=== PATIENT | male | born 1970 | race African-American/Black ===

== ENCOUNTER 2016-11-28 18:18 | Emergency (ER) | payer OTHER ==
[~2016-11-28] VITALS: Ht 200.7 cm; Wt 158.8 kg
[~2016-11-28 18:18] MED LIST: ACTOS 30 MG TAB30 M2 PO; AMARYL4 MG PO; AMLODIPINE; AMOXICILLIN 50500 MG PO; ANDROGEL75 GM TD; ANTIVERT25 MG PO; AUGMENTIN 875-1 EACH PO; AVANDIA8 MG PO; BENZONATATE200 MG PO; BYSTOLIC 5 MG5 M1 PO; BYSTOLIC10 MG PO; CATAPRES0.1 MG PO; DARVOCET-N 1001 EACH PO; DIOVAN PO; ESCITALOPRAM OX10 MG PO; FISH OIL 1,0001 EAC5; HYDROXYCHLOROQ200 M1 PO; IBUPROFEN 800800 MG PO; INVOKANA300 MG PO; JANUVIA100 MG PO; K-DUR10 MEQ; LORTAB 5 MG/5001 TA1 PO; METFORMIN; METFORMIN PO; NEXIUM; NEXIUM40 MG PO; NORCO 5-325 TA1 EACH PO; NORCO 7.5-3251 EACH PO; NORFLEX100 MG PO; NORVASC10 MG PO; PERCOCET 5-3251 EACH PO; PERCOCET PO; PREDNISONE 20 M20 MG PO; PROAIR HFA8.5 GM IH; TESSALON200 MG PO; TRAMADOL 50 MG50 MG PO; VALIUM5 MG PO; VALSARTAN-HCTZ1 EAC3 PO; VITAMIN D1000 UNI1
[2016-11-28] MEDS ORDERED: FLEXERIL PO (20:06)
[2016-11-28] MEDS ORDERED: NORCO 10-325 T1 EAC1 PO (20:06)
[2016-11-28] MEDS ORDERED: SENOKOT-S1 TA1 PO (20:09)
[2016-11-28] MEDS ORDERED: NAPROSYN500 MG PO (20:09)
[2016-11-28 20:19] VITALS: BP 173/100
== END 2016-11-28 20:20 | disposition home or self-care (01) ==
LOC: ER 18:18
DX: S16.1XXA Strain of muscle, fascia and tendon at neck level, initial encounter (principal); I10 Essential (primary) hypertension; E11.9 Type 2 diabetes mellitus without complications; Z91.041 Radiographic dye allergy status; V49.9XXA Car occupant (driver) (passenger) injured in unspecified traffic accident, initial encounter; Y93.89 Activity, other specified; Y92.89 Other specified places as the place of occurrence of the external cause; Y99.8 Other external cause status

== ENCOUNTER 2017-07-03 11:42 | Emergency (ER) | payer OTHER ==
[~2017-07-03] VITALS: Ht 200.7 cm; Wt 154.2 kg
--- NOTE | ~2017-07-03 | EKG ---
[facility] [place] [address] ELECTROCARDIOGRAM REPORT Name: HAM JONES [facility] [id number] Admission: 07/03/17 Attend Phys: Discharge: 07/03/17 Date of : 68 Report #: [id number] THIS REPORT FOR: //name// [facility] ED Test Date: 2017-07-03 Test Time: 12:18:23 Pat Name: HAM JONES Department: Room: Gender: M Family Centered Specialist: GUILHERME : 1970 Requested By: Tram Mart Order Number: [id number] MD: Reji Yang Measurements Intervals [place] Rate: 103 P: 49 GA: 166 QRS: -23 QRSD: 94 T: 24 QT: 334 QTc: 437 Interpretive Statements Sinus tachycardia Probable left atrial enlargement Abnormal R-wave progression, late transition Probable left ventricular hypertrophy Compared to ECG 09/13/2016 10:36:20 Heart rate has increased Electronically Signed On 07-03-2017 16:06:11 HEALTH TECH by Reji Yang [email or web address] <ELECTRONICALLY SIGNED> By: Reji Yang MD, [facility] 07/03/17 1606 17 Reji Yang MD, [facility] /EPI
[~2017-07-03 11:42] MED LIST changes: +FLEXERIL PO; +NAPROSYN500 MG PO; +NORCO 10-325 T1 EAC1 PO; +SENOKOT-S1 TA1 PO
[2017-07-03] MEDS ORDERED: FORTAMET1000 MG PO (11:51)
[2017-07-03 12:36] LABS: HEMATOCRIT 42.2 % (42.0-52.0); HEMOGLOBIN 14.2 gm/dL (14.0-18.0); MCHC 33.7 g/dL (28.0-37.0); MCV 83.2 fL (80.0-100.0); PLATELET COUNT 248 thou/uL (150-400); RBC 5.07 mil/uL (4.50-6.00); RDW 14.6 % (10.5-14.5); URINE BILIRUBIN NEGATIVE (Negative); URINE BLOOD 1+ (Negative); URINE CLARITY CLEAR; URINE COLOR YELLOW; URINE GLUCOSE-RANDOM* 3+ (Negative); URINE KETONES 1+ (Negative); URINE LEUKOCYTES NEGATIVE (Negative); URINE NITRITE NEGATIVE (Negative); URINE PROTEIN (DIPSTICK) 3+ (Negative); URINE UROBILINOGEN 0.2 E.U./dl (0.2-1.0); WBC 7.9 thou/uL (4.0-11.0)
[2017-07-03 12:46] LABS: ANION GAP 8 mmol/L (7-16); BUN 21 mg/dL (7-18); CALCIUM 9.7 mg/dL (8.5-10.1); CHLORIDE 98 mmol/L (98-107); CO2 26 mmol/L (21-32); CREATININE 2.3 mg/dL (0.7-1.3); GLUCOSE 387 mg/dL (74-106); SODIUM 132 mmol/L (136-145)
[2017-07-03 12:51] LABS: SQUAMOUS 0-3 Few /LPF (0-3)
[2017-07-03 12:52] LABS: BACTERIA None Seen /HPF (None Seen); URINE RBC 0-2 Rare /HPF (0-2); URINE WBC 0-5 Rare /HPF (0-5)
[2017-07-03 12:53] LABS: FINE GRANULAR CASTS 0-3 Few /LPF (None Seen); MUCUS 0-3 Light strn/LPF (None Seen)
[2017-07-03 12:55] LABS: ALBUMIN 2.7 g/dL (3.4-5.0); CRYSTALS None Seen /LPF (None Seen); SGOT 71 U/L (15-37); SGPT 101 U/L (30-65); TOTAL BILIRUBIN 0.6 mg/dL (<0.1-1.0); TOTAL PROTEIN 7.3 g/dL (6.4-8.2); TROPONIN-I < 0.04 ng/mL (<0.06)
[2017-07-03 13:34] LABS: ABSOLUTE NEUTROPHILS 6.2 thou/uL (1.4-8.2); PLATELET ESTIMATE NORMAL
[2017-07-03] MEDS ORDERED: AUGMENTIN 875-1 EACH PO (14:16)
[2017-07-03 15:06] VITALS: BP 157/102
== END 2017-07-03 15:07 | disposition home or self-care (01) ==
LOC: ER 11:42
PROVIDERS: Nurse Practitioner Family
DX: H66.91 Otitis media, unspecified, right ear (principal); N17.9 Acute kidney failure, unspecified; H72.91 Unspecified perforation of tympanic membrane, right ear; B34.9 Viral infection, unspecified; I10 Essential (primary) hypertension; E11.65 Type 2 diabetes mellitus with hyperglycemia; Z91.041 Radiographic dye allergy status; Z87.891 Personal history of nicotine dependence; R94.5 Abnormal results of liver function studies

== ENCOUNTER 2018-03-19 18:55 | Inpatient (IN) | payer OTHER ==
[~2018-03-19] VITALS: Ht 200.7 cm; Wt 150.6 kg
--- NOTE | ~2018-03-19 | EKG ---
[place] [address] [address] [facility] [place] [address] ELECTROCARDIOGRAM REPORT Name: HAM JONES Room #: 422-P ADM IN M.R.#: [id number] Admission: 03/19/18 Attend Phys: Dean Szymanski MD Discharge: Date of : 68 Report #: [id number] THIS REPORT FOR: //name// [facility] ED Test Date: 2018-03-19 Test Time: 19:08:55 Pat Name: HAM JONES Department: Room: [facility] Gender: M Dye Range Tender: KAMARI : 1970 Requested By: Dario Hill Order Number: [id number] MD: Reji Yang Measurements Intervals [place] Rate: 78 P: 35 ME: 178 QRS: -30 QRSD: 96 T: 28 QT: 384 QTc: 438 Interpretive Statements Sinus rhythm Abnormal R-wave progression, late transition Left ventricular hypertrophy ST elev, probable normal early repol pattern Compared to ECG 07/03/2017 12:18:23 Sinus tachycardia no longer present Electronically Signed On 03-20-2018 8:44:35 CDT by Reji Yang [email or web address] <ELECTRONICALLY SIGNED> By: Reji Yang MD, [facility] 03/20/18 0844 190 07 Reji Yang MD, [facility] /EPI
--- NOTE | ~2018-03-19 | PATH ---
[facility] [address] [place] [address] PATHOLOGY RPT PROCEDURE Name: HAM COLUNGA Room #: 422-P [facility] IN M.R.#: [id number] Admission: 03/19/18 Date of : 68 Discharge: 03/22/18 Report #: [id number] Path Case #: [id number] [facility] Accession Number: [id number] . 01 Material submitted: . GALLBLADDER . 01 Clinical history: . Acute cholecystitis and cholelithiasis . 02 Diagnosis: Gallbladder "gallbladder cholecystectomy": - Moderate subacute and chronic cholecystitis with cholelithiasis. (SHA:[facility] 03/24/2018) QTP/03/24/2018 . 02 Electronically signed: . Chandan Lovelace MD, Pathologist NPI- [id number] . 01 Gross description: . The specimen is received in formalin, labeled "Colunga, Ham, gallbladder" and consists of a previously opened pink-colunga and wrinkled gallbladder measuring 10.7 cm in length and 3.9 cm in greatest diameter. The neck aspect is slightly edematous and encased with adipose tissue measuring up to 0.5 cm. Present within the container are multiple black and smooth calculi ranging from 0.2 cm to 1.3 cm (2.0 x 1.3 x 0.3 cm in aggregate). The mucosa is stoll-brown with no gross lesions and an average wall thickness of 0.2 cm. A single lymph node candidate is identified adjacent the neck aspect measuring 0.9 x 0.8 cm. Quantitative Equity Head sections are submitted in A1-A2. (SDY; 03/21/2018) SYU/SYU . 02 Pathologist provided ICD-10: K80.12 . 02 CPT . 612979 Specimen Comment: A courtesy copy of this report has been sent to Specimen Comment: [phone], , . Specimen Comment: Report sent to ,DR MEYERS / DR RAMIREZ Performed at: [address] [facility] [address] [id number] MD Kavon Ward MD Phone: [phone] Performed at: [address] [address] PATHOLOGY RPT PROCEDURE Name: HAM COLUNGA Room #: 422-P DIS IN M.R.#: [id number] Admission: 03/19/18 Date of : 68 Discharge: 03/22/18 Report #: [id number] Path Case #: [id number] [place] [address], [place], [place] [id number] MD Zari Briggs MD Phone: [phone]
[~2018-03-19 18:55] MED LIST changes: +FORTAMET1000 MG PO
[2018-03-19 19:06] VITALS: BP 193/126
[2018-03-19] MEDS ORDERED: AMLODIPINE BESY10 MG PO (19:15)
[2018-03-19] MEDS ORDERED: IRBESARTAN300 MG PO (19:15)
[2018-03-19 19:31] LABS: HEMATOCRIT 44.5 % (42.0-52.0); MCH 28.1 pg (26.0-34.0); MCHC 33.6 g/dL (28.0-37.0); MCV 83.5 fL (80.0-100.0); PLATELET COUNT 287 thou/uL (150-400); RBC 5.33 mil/uL (4.50-6.00); RDW 14.3 % (10.5-14.5)
[2018-03-19 19:38] LABS: ANION GAP 5 mmol/L (7-16); BUN 21 mg/dL (7-18); CALCIUM 9.7 mg/dL (8.5-10.1); CHLORIDE 104 mmol/L (98-107); CO2 28 mmol/L (21-32); CREATININE 2.2 mg/dL (0.7-1.3); GLUCOSE 178 mg/dL (74-106); POTASSIUM 3.6 mmol/L (3.5-5.1); SODIUM 137 mmol/L (136-145)
[2018-03-19 19:47] LABS: TROPONIN-I <0.06 ng/mL (<0.06)
[2018-03-19 20:35] LABS: DIRECT BILIRUBIN < 0.1 mg/dL (<0.1-0.3); LIPASE 614 U/L (73-393); SGOT 19 U/L (15-37); SGPT 29 U/L (30-65); TOTAL BILIRUBIN 0.3 mg/dL (<0.1-1.0)
[2018-03-20] VITALS (7 sets, daily range): BP systolic 165–191; BP diastolic 99–133
[2018-03-20 06:24] LABS: HEMATOCRIT 40.8 % (42.0-52.0); HEMOGLOBIN 13.7 gm/dL (14.0-18.0); MCH 28.1 pg (26.0-34.0); MCHC 33.6 g/dL (28.0-37.0); MCV 83.5 fL (80.0-100.0); RBC 4.88 mil/uL (4.50-6.00); RDW 14.8 % (10.5-14.5); WBC 5.6 thou/uL (4.0-11.0)
[2018-03-20 06:44] LABS: ANION GAP 10 mmol/L (7-16); BUN 19 mg/dL (7-18); CALCIUM 8.5 mg/dL (8.5-10.1); CHLORIDE 107 mmol/L (98-107); CHOLESTEROL 107 mg/dL (<200); CO2 26 mmol/L (21-32); GLUCOSE 163 mg/dL (74-106); HDL CHOLESTEROL 27 mg/dL (>40); LDL CHOLESTEROL 43 mg/dL (<100); POTASSIUM 3.6 mmol/L (3.5-5.1); SODIUM 143 mmol/L (136-145); TRIGLYCERIDE 188 mg/dL (<150); VLDL 38 mg/dL (<40)
[2018-03-21] VITALS (8 sets, daily range): BP systolic 151–211; BP diastolic 78–138
[2018-03-21 01:07] LABS: GLYCOHEMOGLOBIN (HGB A1C) 10.6 % (4.8-5.6)
[2018-03-21 06:04] LABS: HEMATOCRIT 41.2 % (42.0-52.0); HEMOGLOBIN 13.8 gm/dL (14.0-18.0); MCHC 33.5 g/dL (28.0-37.0); MCV 83.6 fL (80.0-100.0); RBC 4.93 mil/uL (4.50-6.00); RDW 14.7 % (10.5-14.5)
[2018-03-21 06:13] LABS: CALCIUM 8.5 mg/dL (8.5-10.1); CREATININE 1.9 mg/dL (0.7-1.3); POTASSIUM 3.9 mmol/L (3.5-5.1)
[2018-03-22 04:15] VITALS: BP 169/98
[2018-03-22 05:02] LABS: HEMATOCRIT 40.5 % (42.0-52.0); HEMOGLOBIN 13.3 gm/dL (14.0-18.0); MCH 27.5 pg (26.0-34.0); MCHC 32.7 g/dL (28.0-37.0); RBC 4.82 mil/uL (4.50-6.00); RDW 14.9 % (10.5-14.5); WBC 8.8 thou/uL (4.0-11.0)
[2018-03-22 05:16] LABS: ALBUMIN 2.3 g/dL (3.4-5.0); CALCIUM 8.3 mg/dL (8.5-10.1); CREATININE 2.2 mg/dL (0.7-1.3); POTASSIUM 3.8 mmol/L (3.5-5.1); TOTAL BILIRUBIN 0.4 mg/dL (<0.1-1.0); TOTAL PROTEIN 6.5 g/dL (6.4-8.2)
[2018-03-22 07:45] VITALS: BP 168/100
[2018-03-22] MEDS ORDERED: PERCOCET 10-321 EACH PO (14:17)
[2018-03-22 15:29] VITALS: BP 185/91
== END 2018-03-22 16:22 | disposition home or self-care (01) | DRG 417 ==
LOC: ER 18:55 → 4E 23:23 → EROBS 23:23 → 4E 03-20 01:06
PROVIDERS: Emergency Medicine; Hospitalist; Nurse Practitioner Family; Physician Assistant
PROC: BF101ZZ Fluoroscopy of Bile Ducts using Low Osmolar Contrast (ICD-10-PCS; 2018-03-19)
PROC: 5A09357 Assistance with Respiratory Ventilation, Less than 24 Consecutive Hours, Continuous Positive Airway Pressure (ICD-10-PCS; principal; 2018-03-21)
PROC: 0FT44ZZ Resection of Gallbladder, Percutaneous Endoscopic Approach (ICD-10-PCS; principal; 2018-03-21)
DX: K80.20 Calculus of gallbladder without cholecystitis without obstruction (principal); K85.10 Biliary acute pancreatitis without necrosis or infection; I16.0 Hypertensive urgency; N18.3 Chronic kidney disease, stage 3 (moderate); E78.5 Hyperlipidemia, unspecified; K76.0 Fatty (change of) liver, not elsewhere classified; E11.22 Type 2 diabetes mellitus with diabetic chronic kidney disease; I12.9 Hypertensive chronic kidney disease with stage 1 through stage 4 chronic kidney disease, or unspecified chronic kidney disease; N28.89 Other specified disorders of kidney and ureter; E66.9 Obesity, unspecified; Z68.37 Body mass index [BMI] 37.0-37.9, adult; Z87.81 Personal history of (healed) traumatic fracture; Z91.041 Radiographic dye allergy status; Z87.891 Personal history of nicotine dependence; Z91.011 Allergy to milk products
CPT/HCPCS: 10183; 50010; 50101; 50249; 50411; 50555; 50558; 50962; 51489; 51975; 52265; 53307; 53310; 54022; 54118; 55245; 55317; 56462; 56525; 56526; 62110; 62900; 70005

== ENCOUNTER 2018-10-01 09:49 | Inpatient (IN) | payer OTHER ==
[2018-10-01] VITALS (14 sets, daily range): BP systolic 161–216; BP diastolic 87–153
[~2018-10-01] VITALS: Ht 200.7 cm; Wt 148.0 kg
--- NOTE | ~2018-10-01 | HC ---
[facility] [place] [address] CONSULTATION Name: HAM JONES Room #: 355-P [facility] IN ..#: [id number] Admission: 10/01/18 ������������������ Attend Phys: Dean Szymanski MD Discharge: ������������������ Date of : 68 Report #: [id number] THIS REPORT FOR: //name// CC: Maria Eugenia Santiago MD DATE OF SERVICE: 10/01/2018 NEPHROLOGY CONSULTATION REASON FOR CONSULTATION: Elevated creatinine. HISTORY OF PRESENT ILLNESS: This is a 48-year-old male who came in early this morning with increasing dyspnea. This included orthopnea as well as some PND. He did not have chest pain at that time. He was not profoundly hypoxemic on admission to the Emergency Room. He was given 20 mg IV dose of furosemide and had minimal urine output and no improvement after that. He has had very high blood pressures throughout the day since he hit the Emergency Room. They started at 200/146. He has been in the 190/140 range continuously since that time. He knows he has had hypertension dating back about 14-15 years. He also has type 2 diabetes dating back that long. He is normally on irbesartan 300 mg daily as well as amlodipine 10 mg daily. Those are his only 2 antihypertensive medications. He is unaware of what his blood pressure had been running recently. He denies any history of edema. He states he has been told of some proteinuria, but it has never been quantified that he knows of. He is unaware of an elevated creatinine level or any chronic kidney disease. In looking back through his records, he has creatinine levels on the hospital records dating back to 2008 and they have all been elevated. In 2008, it was 1.6. Over the past 2-1/2 years, he has generally run in the 2-2.3 range. He was in the hospital here in 03/2018 for cholecystectomy. His creatinine level was 2.2 at that time. He comes in at 2.6 today. Of additional note, he had 3+ proteinuria on urinalysis and he has had that in the past also. His serum albumin is only 2.4 with a total protein of 7.0. Additional renal-related history is that he has been previously found to have an abnormal appearance to the right kidney. I have reviewed a prior CT scan here. In addition, he had a workup by Dr. Santiago of Urology that included a CT scan as well as an MRI and an ultrasound. The final diagnosis by Dr. Santiago was a complex cyst in the lower pole of the right kidney with a plan for repeat MRI in 6 months for followup of this complex cyst. PAST MEDICAL HISTORY: Hypertension and diabetes, both diagnosed about the same time, which would have been about age 34. He has been on antihypertensives. He was recently started on both Trulicity and some long-acting insulin by an [facility] [address] [place] [address] CONSULTATION Name: HAM JONES Room #: 355-P [facility] IN ..#: [id number] Admission: 10/01/18 ������������������ Attend Phys: Dean Szymanski MD Discharge: ������������������ Date of : 68 Report #: [id number] foam rubber molder he recently saw, although he does not recall the name of that person. He had a laparoscopic cholecystectomy at this hospital in 03/2018. He has obstructive sleep apnea. Years ago, he had uvulopalatoplasty done. He still wears CPAP some of the time, but he is not wearing it all of the time. Only other surgery was a repair of a left ankle fracture. He has hyperlipidemia and has been on treatment for that. MEDICATIONS ON ADMISSION: Include amlodipine 10 mg daily, irbesartan 300 mg daily, Trulicity, long-acting insulin, Crestor 10 mg daily. ALLERGIES: INCLUDE IODINATED CONTRAST. FAMILY HISTORY: No history of renal disease in the family. There has been some hypertension in the family. SOCIAL HISTORY: The patient is and lives in [place], [place]. He has 3 adolescent children in the room with him now. 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 REVIEW OF SYSTEMS: He has had the orthopnea and PND over the past 3 nights. He denies dyspnea on exertion, mainly at work where he says he does quite a bit of walking. He says he never has to climb any stairs, so he does not know if he has dyspnea with that. Denies chest pain or palpitations. He has had some mild nonproductive cough. No fevers, chills or sweats. Denies nausea or vomiting. He still has some residual right upper quadrant pain that he relates to being present since his cholecystectomy in March. No diarrhea. No change in bowel habits. No difficulty voiding urine. No dysuria. He has nocturia 3 times nightly, which is not a change, no hematuria. He denies peripheral edema in the hands, feet, or face. No fevers, chills or sweats. No open skin lesions. Denies peripheral neuropathy related to his diabetes and also denies retinopathy. PHYSICAL EXAMINATION: GENERAL: Very pleasant, very large man. VITAL SIGNS: Blood pressure on last check 197/142, heart rate is 90, respiratory rate 18, oxygen saturation 97% on room air, temperature 36.9 degrees Centigrade. He is 6 feet 7-3/4 inches tall, he weighs 151 kilograms with a BMI of 37.6. HEENT: Shows pupils are equal and reactive. He has several skin lesions in the periorbital area, across his forehead, and some on his nose that he says they were biopsied and told it was sarcoidosis, though they looked more like they might be____. Oral mucosa is negative. Uvuloplasty has been noted. NECK: Shows no adenopathy, thyromegaly, JVD or bruit. CHEST: Fairly clear at this time. There might be a few basilar rales, although they are not prominent. No egophony. HEART: Regular rate and rhythm, no gallop. [facility] [address] [place] [address] CONSULTATION Name: HAM JONES Room #: 355- ADM IN M.R.#: [id number] Admission: 10/01/18 ������������������ Attend Phys: Dean Szymanski MD Discharge: ������������������ Date of : 68 Report #: [id number] BACK: Shows no CVA or paraspinous tenderness. ABDOMEN: Active bowel sounds. It is soft and nontender. I cannot palpate organomegaly or masses. EXTREMITIES: Showed 2+ peripheral pulses. He has no peripheral edema. LABORATORY DATA: Sodium 140, potassium 4.2, chloride 106, bicarbonate 22, BUN 24, creatinine 2.6, glucose 186, calcium 9.0, total protein 7.0, albumin 2.4, AST 22, ALT 25, total bilirubin 0.3. Hemoglobin 14.2, hematocrit 42.8, white count 5.7, platelets 244,000. Urinalysis, specific gravity of 1.020, pH 6.0, 3+ protein, 1+ blood, 0-5 white cells, 0-2 red cells. ASSESSMENT: 1. Chronically elevated creatinine consistent with chronic kidney disease stage 3. It might be borderline stage 4, but he is a very large man, so I think his actual GFR is probably better than the estimated GFR. He has longstanding diabetes and hypertension. He has significant proteinuria. From what I can tell, this has never been quantified. We need to quantify that. It could well be nephrotic range with his low serum albumin. For completeness, we will check a kappa lambda light chain to make sure it did not have paraprotein also. At this point, he needs much better blood pressure control. 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 We will get him back on his angiotensin receptor yu. He will continue his amlodipine. He will need some additional diuresis. 2. Hypertension, out of control as noted above. Again, he had not had his meds today. We will get them as well as some IV Lasix. Going forward, we will need to incrementally increase his regimen and intensify his antihypertensive medications over time bringing his blood pressure down to normal. Hopefully, this will also get his proteinuria under control. 3. Longstanding diabetes mellitus, on the regimen as noted above, now seeing a certified pharmacy technician. 4. Complex cyst, lower pole right kidney with previous workup. Please see my note above concerning that with a plan followup of that in a number of months with another MRI by Dr. Santiago. 4. Obstructive sleep apnea. He would be better served by being back on chronic CPAP rather than just intermittent CPAP. PLAN: 1. We will resume his amlodipine and his ARB tonight. We will have give him losartan because that is what we have available here. 2. I will give him a dose of IV Lasix 80 mg as with that creatinine level 20 mg is a suboptimal dose. 3. Quantify proteinuria. 4. Check kappa lambda light chain ratio. 5. We do not need further renal imaging at this time as that has all been fully done. [address] [place] [address] CONSULTATION Name: HAM JONES Room #: 355-P ADM IN M.R.#: [id number] Admission: 10/01/18 ������������������ Attend Phys: Dean Szymanski MD Discharge: ������������������ Date of : 68 Report #: [id number] 6. Low sodium diet. 7. Repeat labs in the morning. 8. Continue to titrate meds to get blood pressure controlled, although we will not be able to get it down to where we want in the very near future. It will take some time because of the massive elevation to get it where it needs to be. Most of that will need to be done as an outpatient. 9. Further renal education. 10. Will follow along both here in the hospital as well as on an outpatient basis to make sure this starts getting under better control. ��������������������������������������������� ���������������������������������������� By: ��������������������������������������������� 1814 1256 Stalin Davalos MD /nt
[~2018-10-01 09:49] MED LIST changes: +AMLODIPINE BESY10 MG PO; +IRBESARTAN300 MG PO; +PERCOCET 10-321 EACH PO
[2018-10-01 10:24] LABS: HEMATOCRIT 42.8 % (42.0-52.0); HEMOGLOBIN 14.2 gm/dL (14.0-18.0); MCH 27.8 pg (26.0-34.0); MCHC 33.1 g/dL (28.0-37.0); MCV 84.2 fL (80.0-100.0); PLATELET COUNT 244 thou/uL (150-400); RBC 5.08 mil/uL (4.50-6.00); RDW 14.7 % (10.5-14.5); WBC 5.7 thou/uL (4.0-11.0)
[2018-10-01 10:31] LABS: CREATININE 2.6 mg/dL (0.7-1.3); POTASSIUM 4.2 mmol/L (3.5-5.1)
[2018-10-01 10:41] LABS: ALBUMIN 2.4 g/dL (3.4-5.0); TOTAL BILIRUBIN 0.3 mg/dL (<0.1-1.0); TROPONIN-I 0.06 ng/mL (<0.06)
[2018-10-01 11:44] LABS: ABSOLUTE NEUTROPHILS 3.5 thou/uL (1.4-8.2); PLATELET ESTIMATE NORMAL
[2018-10-01 11:48] LABS: URINE BILIRUBIN NEGATIVE (Negative); URINE BLOOD 1+ (Negative); URINE CLARITY CLEAR; URINE COLOR YELLOW; URINE GLUCOSE-RANDOM* 1+ (Negative); URINE KETONES NEGATIVE (Negative); URINE LEUKOCYTES NEGATIVE (Negative); URINE NITRITE NEGATIVE (Negative); URINE PROTEIN (DIPSTICK) 3+ (Negative); URINE UROBILINOGEN 0.2 E.U./dl (0.2-1.0)
[2018-10-01 12:02] LABS: CASTS None Seen /LPF (None Seen); MUCUS 0-3 Light strn/LPF (None Seen); SQUAMOUS 0-3 Few /LPF (0-3)
[2018-10-01 12:03] LABS: BACTERIA None Seen /HPF (None Seen); CRYSTALS None Seen /LPF (None Seen); URINE RBC 0-2 Rare /HPF (0-2); URINE WBC 0-5 Rare /HPF (0-5)
[2018-10-01] MEDS ORDERED: TRESIBA FL200 UNIT/1 SUBQ (13:27)
[2018-10-01] MEDS ORDERED: TRULICITY1.5 MG/0.5 SUBQ (13:30)
[2018-10-01] MEDS ORDERED: CRESTOR10 MG PO (13:31)
[2018-10-01] MEDS ORDERED: UNICOMPLEX M TA1 TA1 PO (13:32)
[2018-10-01] MEDS ORDERED: KLOR-CON 1010 MEQ PO (13:35)
[2018-10-01] MEDS ORDERED: VITAMIN D1000 UNI1 PO (13:36)
[2018-10-01] MEDS ORDERED: VITAMINC500 PO (13:36)
--- NOTE | 2018-10-01 18:42 | NUR ---
Assumed care of pt at approximately 1500. Pt came from ED. Reports increasing SOB over last 3 days. Pt reports having CHF, HTN, and DM. At arrival on floor pt had BP of 197/142. Pt complained of a PERKINS rating it a 20/10. Was given IV HTN medication at that time. Reassessment at approximately 1820 showed a BP of 196/137. Dr. Elizabeth ordered one time doses of Losartan, Norvasc, and Lasix, which were given at approximately 1830, in addition to Tylenol. Patient denies current SOB but has compained of upper abdominal pain. (Further notes in admission assessment.) Patient remains NSR. Patient has not yet made progress toward his POC/DC goals. Will continue to monitor and assess.
[2018-10-01 20:19] LABS: URINE CREATININE-RANDOM* <13 mg/dL; URINE PROTEIN-RANDOM* 103.9 mg/dL (<11.9)
[2018-10-02] VITALS (29 sets, daily range): BP systolic 114–170; BP diastolic 71–122
[2018-10-02 05:02] LABS: HEMATOCRIT 41.7 % (42.0-52.0); HEMOGLOBIN 13.6 gm/dL (14.0-18.0); MCH 27.5 pg (26.0-34.0); MCHC 32.7 g/dL (28.0-37.0); MCV 84.2 fL (80.0-100.0); RBC 4.95 mil/uL (4.50-6.00); RDW 14.8 % (10.5-14.5); WBC 6.4 thou/uL (4.0-11.0)
--- NOTE | 2018-10-02 05:09 | NUR ---
PT RESTING IN BED. APPEARS TO BE SLEEPING. PT SR ON MONITOR. REMAINS ON RA. PT BP NOW MANAGED WITH CARDENE GTT AND PT TOLERATING WILL BETTER BPs. PT HEADACHE IMPROVED WELL. PT AM LABS TO BE REVIEWED.
[2018-10-02 05:16] LABS: ALBUMIN 2.3 g/dL (3.4-5.0); CALCIUM 9.1 mg/dL (8.5-10.1); PHOSPHORUS 4.7 mg/dL (2.5-4.9); POTASSIUM 3.7 mmol/L (3.5-5.1)
--- NOTE | 2018-10-02 09:38 | EKG ---
[place] [address] [facility] [place] [address] ELECTROCARDIOGRAM REPORT Name: HAM JONES Room #: 355-P ADM IN M.R.#: [id number] ������������������ Admission: 10/01/18 ������������������ Attend Phys: Dean Szymanski MD Discharge: ������������������ Date of : 68 Report #: [id number] ����������������������������������������������������������������� [id number] THIS REPORT FOR: //name// [facility] ED Test Date: 2018-10-01 Test Time: 10:07:30 Pat Name: HAM JONES Department: Room: [facility] Gender: M Housing Liaison: : 1970 Requested By: Edmund Griffin Order Number: [id number] MD: Reji Yang Measurements Intervals [place] Rate: 91 P: 54 AR: 179 QRS: -29 QRSD: 92 T: 116 QT: 383 QTc: 472 Interpretive Statements Sinus rhythm Abnormal T, consider ischemia, lateral leads Compared to ECG 03/19/2018 19:08:55 T-wave abnormality now present Electronically Signed On 10-02-2018 9:38:12 CDT by Reji Yang [email or web address] ��������������������������������������������� <ELECTRONICALLY SIGNED> ���������������������������������������� By: Reji Yang MD, [facility] ��������������������������������������������� 10/02/18 0938 1007 1007 Reji Yang MD, FAC /EPI
--- NOTE | 2018-10-02 10:14 | 2DMMODE ---
[facility] [address] [place] [address] 2 D/M-MODE ECHOCARDIOGRAM Name: HAM JONES Room #: 355-P [facility] IN [facility]#: [id number] ������������� Admission: 10/01/18 ������������� Attend Phys: Dean Szymanski MD Discharge: ��� ������������� ��� Date of : 68 Date of Service: 10/02/18 1014 �� Report #: [id number] �������� ��������������������������������������������[id number] THIS REPORT FOR: //name// APPROVED REPORT Study performed: 10/02/2018 09:11:24 EXAM: Comprehensive 2D, Doppler, and color-flow Echocardiogram Patient Location: Echo lab Room #: [facility] Status: routine BSA: 2.84 HR: 92 bpm BP: 155/110 mmHg Rhythm: Regular, PVCs Other Information Study Quality: Good Indications Congestive Heart Failure Dyspnea Hx: DM, HTN, sarcoidosis 2D Dimensions RVDd: 29.30 mm IVSd: 13.00 (7-11mm) LVOT Diam: 24.05 (18-24mm) LVDd: 57.36 mm PWd: 14.00 (7-11mm) LVDs: 44.43 (25-40mm) Aortic Root: 36.09 mm Volumes Left Atrial Volume (Systole) Single Plane 4CH: 62.06 mL Single Plane 2CH: 60.95 mL LA ESV Index: 23.00 mL/m2 Aortic Valve AoV Peak Gage.: 1.23 m/s AO Peak Gr.: 6.07 mmHg LVOT Max P.72 mmHg LVOT Max V: 0.82 m/s SHEILA Vmax: 3.04 cm2 Pulmonary Valve PV Peak Gage.: 0.88 m/s PV Peak Gr.: 3.09 mmHg [facility] [address] [place] [address] 2 D/M-MODE ECHOCARDIOGRAM Name: HAM JONES [facility] [id number] ������������� Admission: 10/01/18 ������������� Attend Phys: Dean Szymanski MD Discharge: ��� ������������� ��� Date of : 68 Date of Service: 10/02/18 1014 �� Report #: [id number] �������� ��������������������������������������������[id number] Pulmonary Vein P Vein S: 0.48 m/s P Vein A: 0.27 m/s P Vein D: 0.26 m/s P Vein S/D Ratio: 1.85 Tricuspid Valve RAP Estimate: 5.00 mmHg Left Ventricle The left ventricle is normal size. There is global hypokinesis of the left ventricle. Moderate concentric left ventricular hypertrophy. Left ventricular systolic function is mildly decreased. LVEF is 45%. This study is not technically sufficient to allow evaluation of the LV diastolic function. Right Ventricle The right ventricle is normal size. The right ventricular systolic function is normal. Atria The left atrium size is normal. The right atrium size is normal. Aortic Valve The aortic valve is normal in structure. No aortic regurgitation is present. There is no aortic valvular stenosis. Mitral Valve The mitral valve is normal in structure. Mild mitral regurgitation. Tricuspid Valve The tricuspid valve is normal in structure. There is no tricuspid valve regurgitation noted. Unable to assess PA pressure. Pulmonic Valve Pulmonic valve is not well visualized. There is no pulmonic valvular regurgitation. Great Vessels The aortic root is normal in size. IVC is normal in size and collapses >50% with inspiration. Pericardium There is no pericardial effusion. [facility] [address] [place] [address] 2 D/M-MODE ECHOCARDIOGRAM Name: HAM JONES Room #: 355-P [facility] IN .R.#: [id number] ������������� Admission: 10/01/18 ������������� Attend Phys: Dean Szymanski MD Discharge: ��� ������������� ��� Date of : 68 Date of Service: 10/02/18 1014 �� Report #: [id number] �������� ��������������������������������������������[id number] <Conclusion> Left ventricular systolic function is mildly decreased. Moderate concentric left ventricular hypertrophy. LVEF 45%. The aortic valve is normal in structure. No aortic regurgitation or stenosis The mitral valve is normal in structure. Mild mitral regurgitation Pulmonary artery pressure could not be reliably ascertained. There is no pericardial effusion. ��������������������������������������������� <ELECTRONICALLY SIGNED> ���������������������������������������� By: Reji Yang MD, [facility] ��������������������������������������������� 10/02/18 1014 1014 1014 Reji Yagn MD, FACC /INF
--- NOTE | 2018-10-02 18:05 | NUR ---
Assumed care of patient at 0700. BP continued to be high this shift, but improved compared to previous day. Able to control BP with scheduled meds, but remains high this evening. Hydralazine PRN given x1 without change in BP. Dr. Szymanski notified, who states will order further meds. To give onetime dose of Clonidine. Otherwise, VSS. Patient with headache this morning; partially controlled with PRN Tylenol. Improved now. Patient alert and oriented x4. Steady gait, up ad olive in room. Encouraging voiding per urinal to accurately measure output. Good urine output this shift. Attempting to progress towards POC. May DC tomorrow if blood pressure better controlled. Will continue to monitor.
[2018-10-03] VITALS (8 sets, daily range): BP systolic 151–180; BP diastolic 96–130
--- NOTE | 2018-10-03 05:04 | NUR ---
ASSUMED PT CARE AROUND 1900. A&OX4. C/O HEADACHE. NOTIFIED LAUNDRY MANAGER OVERLAY OPERATOR FOR HOSPITALIST. IBUPROFEN GIVEN ORDERED. PT STATED PERKINS IMPROVED WITH MEDICATION. BP ELEVATED. NOTIFIED LAUNDRY MANAGER OVERLAY OPERATOR. BP MEDICATIONS GIVEN ORDERED. BP IS SLOWLY IMPROVING. LAUNDRY MANAGER UPDATED ON BP. PT SLEPT MOST OF THE NIGHT. RESP EVEN AND UNLABORED. UP AD CELIO AROUND THE ROOM WITH STEADY GAIT. PROGRESSING SLOWLY TOWARD POC GOALS. WILL CONTINUE TO MONITOR FURTHER.
[2018-10-03 05:09] LABS: ALBUMIN 2.3 g/dL (3.4-5.0); CREATININE 3.1 mg/dL (0.7-1.3); PHOSPHORUS 4.9 mg/dL (2.5-4.9); POTASSIUM 3.6 mmol/L (3.5-5.1)
--- NOTE | 2018-10-03 06:25 | NUR ---
BP ELEVATED AGAIN THIS AM. NOTIFIED CATTLE SHIPPER SUPERVISOR POWDER AND PRIMER CANNING FOR HOSPITALIST. ORDERS RECEIVED. WILL UPDATE ONCOMING NURSE.
[2018-10-03 15:10] LABS: KAPPA/LAMBDA RATIO 1.59 (0.26-1.65); LAMBDA FREE LIGHT CHAINS 50.8 mg/L (5.7-26.3)
--- NOTE | 2018-10-03 15:12 | NUR ---
assessment: cm REVIEWED CHART AND MET WITH PATIENT AT THE BEDSIDE. PT IS ALERT AND ORIENTED X4. PT WAS ADMITTED WITH CHF/HTN. PT REPORTS HE IS FULLY INDEPENDENT WITH ADLS AND AMBULATION AND REPORTS BEING VERY ACTIVE. PT STATES HE WILL HAVE NO NEEDS FROM CM AT DISCHARGE. PTS BP IS STILL ELEVATED TODAY AND WILL LIKELY BE HERE 1-2 DAYS BUT POSSIBLE DISCHARGE OVER THE WEEKEND. PT STATES HE WILL HAVE NO NEEDS.
--- NOTE | 2018-10-03 17:41 | NUR ---
Assumed care of Pt at 0700. Pt alert and oriented x4 complaining of severe 10/10 headache. hypertensive. meds managed by nephrology - slowly improving. finding little releif with analgesics for headache. up ad olive w/ steady gait. sinus on telemetry. blood sugars well controlled. slow progress toward poc goals.
--- NOTE | 2018-10-04 04:38 | NUR ---
Patient making slow progress towards outcome goals. BP remains elevated, treated with PRN Hydralazine with some relief. Low fall risks. Uses call light appropriately for needs. CPAP while sleeping.
[2018-10-04 04:50] LABS: ALBUMIN 2.3 g/dL (3.4-5.0); CALCIUM 9.1 mg/dL (8.5-10.1); PHOSPHORUS 4.9 mg/dL (2.5-4.9); POTASSIUM 3.7 mmol/L (3.5-5.1)
[2018-10-04 05:10] VITALS: BP 166/111
[2018-10-04 07:44] VITALS: BP 138/93
[2018-10-04 12:35] VITALS: BP 147/93
[2018-10-04 17:18] VITALS: BP 158/99
--- NOTE | 2018-10-04 18:29 | NUR ---
Assumed care of Pt at 0700. Pt AOX4 in no acute distress. reports that pain and nausea is improving w/ current med regimen. up ad olive w/ steady gait. voicing no concerns. anticipating d/c tomorrow if bp continues to improve. pt progressing toward poc goals.
[2018-10-04 20:05] VITALS: BP 146/93
[2018-10-05 03:50] VITALS: BP 142/98
[2018-10-05 04:57] LABS: HEMATOCRIT 41.5 % (42.0-52.0); HEMOGLOBIN 13.7 gm/dL (14.0-18.0); MCH 27.9 pg (26.0-34.0); MCHC 32.9 g/dL (28.0-37.0); MCV 84.7 fL (80.0-100.0); RBC 4.9 mil/uL (4.50-6.00); RDW 14.8 % (10.5-14.5); WBC 4.9 thou/uL (4.0-11.0)
[2018-10-05 05:12] LABS: ALBUMIN 2.4 g/dL (3.4-5.0); CREATININE 3.5 mg/dL (0.7-1.3); PHOSPHORUS 5.8 mg/dL (2.5-4.9); POTASSIUM 4.1 mmol/L (3.5-5.1)
--- NOTE | 2018-10-05 06:32 | NUR ---
PT IS ABLE TO VERBALIZE WHEN HE HAD A HEADACHE AND ASKED FOR PAIN MEDICATION. PT BLOOD SUGAR IN CHECK WITH ALL THE FOOD HE IS CONSUMING FROM OUTSIDE SOURCES. FAMILY WAS IN FOR VISIT. URINE OUTPUT FOR OVERNIGHT WAS GOOD. PT SHOULD POSSIBLY DC TODAY. HOURLY ROUNDING.
[2018-10-05 08:40] VITALS: BP 185/99
[2018-10-05 10:34] VITALS: BP 158/97
[2018-10-05 16:55] VITALS: BP 156/101
[2018-10-05 19:17] VITALS: BP 172/118
[2018-10-05 22:39] VITALS: BP 159/109
[2018-10-06 00:43] VITALS: BP 152/116
--- NOTE | 2018-10-06 02:28 | NUR ---
ASSUMED CARE OF PATIENT AT 1900. BP REMAINS HIGH, PO MEDS GIVEN WELL IV HYDRALAZINE. BP LOWERED SLIGHTLY. PATIENT RESTING IN BED, DENIES PAIN, SOA OR N/V. HOPING TO BE DISCHARGED TODAY. WORKING TOWARDS POC GOALS.
[2018-10-06 03:46] VITALS: BP 168/106
[2018-10-06 07:20] VITALS: BP 168/86
[2018-10-06 10:16] LABS: CALCIUM 8.8 mg/dL (8.5-10.1); CREATININE 3.2 mg/dL (0.7-1.3); POTASSIUM 4.2 mmol/L (3.5-5.1)
[2018-10-06 11:13] VITALS: BP 152/99
[2018-10-06] MEDS ORDERED: MINOXIDIL10 MG PO (13:02)
[2018-10-06] MEDS ORDERED: CARVEDILOL25 MG PO (13:03)
[2018-10-06] MEDS ORDERED: TORSEMIDE20 MG PO (13:04)
[2018-10-06 13:15] VITALS: BP 152/99
--- NOTE | 2018-10-06 14:20 | NUR ---
ASSUMED PAtient care at 0700. a/o x4. pleasant. progressing towards poc goals. dc to home now.
== END 2018-10-06 14:23 | disposition home or self-care (01) | DRG 682 ==
LOC: ER 09:49 → 3W 12:46 → EROBS 12:46 → 3W 14:13 → ENTRNSPT 10-06 14:09 → EDTRNSPTSTS 10-06 14:11 → 3W 10-06 14:23
PROVIDERS: Emergency Medicine; Hospitalist; Internal Medicine Nephrology; ADMIT Hospitalist
DX: N17.9 Acute kidney failure, unspecified (principal); I50.23 Acute on chronic systolic (congestive) heart failure; I13.0 Hypertensive heart and chronic kidney disease with heart failure and stage 1 through stage 4 chronic kidney disease, or unspecified chronic kidney disease; I16.0 Hypertensive urgency; E78.5 Hyperlipidemia, unspecified; N28.1 Cyst of kidney, acquired; G47.33 Obstructive sleep apnea (adult) (pediatric); N18.4 Chronic kidney disease, stage 4 (severe); D86.9 Sarcoidosis, unspecified; E11.65 Type 2 diabetes mellitus with hyperglycemia; E11.22 Type 2 diabetes mellitus with diabetic chronic kidney disease; R80.9 Proteinuria, unspecified; Z79.84 Long term (current) use of oral hypoglycemic drugs; Z91.041 Radiographic dye allergy status; Z91.011 Allergy to milk products
CPT/HCPCS: 10879

== ENCOUNTER 2018-10-09 09:37 | Inpatient (IN) | payer OTHER ==
[~2018-10-09] VITALS: Ht 200.7 cm; Wt 148.3 kg
--- NOTE | ~2018-10-09 | HC ---
[facility] [place] [address] CONSULTATION Name: HAM JONES Room #: 457-P [facility] IN M.R.#: [id number] Admission: 10/09/18 ������������������ Attend Phys: Felix Valero MD Discharge: ������������������ Date of : 68 Report #: [id number] THIS REPORT FOR: //name// CC: Felix Peña REASON FOR CONSULTATION: Chronic kidney disease. HISTORY OF PRESENT ILLNESS: The patient is well known to me from previous admission. He is a 48-year-old -[place] male patient who I have recently admitted with hypertensive urgency and he was found to have an elevated creatinine. Extensive workup has been done for the patient. He had been followed by Dr. Tolentino. His baseline creatinine had been in the 2-2.3 range. However, his most recent hospitalization was complicated by an acute kidney injury with a creatinine rising at 3.5 with the blood pressure being in control. He was discharged on amlodipine, carvedilol, minoxidil, torsemide, irbesartan; however, he tells me that he has not been taking his torsemide. He came in with dizziness, lightheadedness, chest pain, nausea and other nonspecific symptoms. He was admitted to further evaluate. He was supposed to be seeing me in the clinic in the next couple of weeks. He had what was described as a mass in his kidney; however, extensive work up with an MRI and ultrasound revealed that this is a complex cyst in the lower pole of the right kidney and plan was for him to have an MRI in 6 months and follow up with Dr. Santiago from the Urology Service. PAST MEDICAL HISTORY: 1. Hypertension. 2. Diabetes mellitus. 3. Cholecystectomy. 4. Obstructive sleep apnea. 5. Uvuloplasty. 6. Left ankle fracture surgery. 7. Hyperlipidemia MEDICATIONS: Include: 1. Trulicity. 2. Crestor. 3. Amlodipine. 4. Minoxidil. 5. Irbesartan. 6. Torsemide. 7. Carvedilol. ALLERGIES: CONTRAST. FAMILY HISTORY: No known chronic kidney disease in the family; however, hypertension runs in the family. [facility] [address] [place] [address] CONSULTATION Name: HAM JONES Room #: 457-P [facility] IN M.R.#: [id number] Admission: 10/09/18 ������������������ Attend Phys: Felix Valero MD Discharge: ������������������ Date of : 68 Report #: [id number] SOCIAL HISTORY: He works for a [employer] company. He is . He has 3 children. REVIEW OF SYSTEMS: GENERAL: Significant for weakness and tiredness. CARDIOVASCULAR: As per the history of present illness. PULMONARY: No cough or hemoptysis. GASTROINTESTINAL: No nausea or vomiting. GENITOURINARY: No frequency or urgency. NEUROLOGICAL: Significant for dizziness. No syncope. No seizure PHYSICAL EXAMINATION: GENERAL: He is alert, oriented. VITAL SIGNS: Blood pressure was 147/90, however, he had an initial reading of 170 when he presented to the Emergency Room. HEAD AND NECK: No jugular venous distention. There are multiple xanthomatous rash all over his face and eyelids. CHEST: No crackles. CARDIOVASCULAR: No rub. ABDOMEN: Soft, nontender. LOWER EXTREMITIES: No edema. LABORATORY DATA: Reviewed. Creatinine is 3.4. IMAGING: Images including his abdominal x-ray was reviewed. ASSESSMENT AND IMPRESSION: 1. Chronic kidney disease. 2. Hypertension. 3. Diabetes mellitus. 4. Nonspecific symptoms in the form of dizziness, lightheadedness, chest pain. PLAN: 1. We will ask the nurses to get a postural blood pressure reading on him. 2. His renal function seems to have stabilized, then we will continue usual medications for his blood pressure, however, I will keep off the minoxidil for now. 3. Repeat labs in the morning. 4. Difficult to control blood pressure with extensive workup in the past. 5. His best regimen at this point would be a diuretic, an angiotensin receptor yu, beta yu or calcium channel yu, with his potential reaction to the minoxidil, we might switch to Aldactone; however, we will decide about that in the next few days. As for now, we will keep off minoxidil. [address] [address] CONSULTATION Name: HAM JONES Room #: 457-P [facility] IN M.R.#: [id number] Admission: 10/09/18 ������������������ Attend Phys: Felix Valero MD Discharge: ������������������ Date of : 68 Report #: [id number]. We will continue to follow along during his hospital stay. Primary admitting team has initiated current workup. ��������������������������������������������� ���������������������������������������� By: ��������������������������������������������� [id number] Radu Law MD /nt
[~2018-10-09 09:37] MED LIST changes: +CARVEDILOL25 MG PO; +CRESTOR10 MG PO; +KLOR-CON 1010 MEQ PO; +MINOXIDIL10 MG PO; +TORSEMIDE20 MG PO; +TRESIBA FL200 UNIT/1 SUBQ; +TRULICITY1.5 MG/0.5 SUBQ; +UNICOMPLEX M TA1 TA1 PO; +VITAMIN D1000 UNI1 PO; +VITAMINC500 PO
[2018-10-09 09:38] VITALS: BP 177/115
[2018-10-09 10:15] LABS: HEMATOCRIT 40.3 % (42.0-52.0); HEMOGLOBIN 13.6 gm/dL (14.0-18.0); MCH 28.4 pg (26.0-34.0); MCHC 33.8 g/dL (28.0-37.0); MCV 84.2 fL (80.0-100.0); PLATELET COUNT 263 thou/uL (150-400); RBC 4.79 mil/uL (4.50-6.00); RDW 14.5 % (10.5-14.5); WBC 5.3 thou/uL (4.0-11.0)
[2018-10-09 10:20] LABS: ANION GAP 10 mmol/L (7-16); BUN 44 mg/dL (7-18); CALCIUM 9.4 mg/dL (8.5-10.1); CHLORIDE 104 mmol/L (98-107); CO2 23 mmol/L (21-32); CREATININE 3.2 mg/dL (0.7-1.3); GLUCOSE 197 mg/dL (74-106); POTASSIUM 4.4 mmol/L (3.5-5.1); SODIUM 137 mmol/L (136-145)
[2018-10-09 10:26] LABS: ALBUMIN 2.5 g/dL (3.4-5.0); DIRECT BILIRUBIN < 0.1 mg/dL (<0.1-0.3); LIPASE 409 U/L (73-393); SGOT 14 U/L (15-37); SGPT 23 U/L (30-65); TOTAL BILIRUBIN 0.3 mg/dL (<0.1-1.0); TOTAL PROTEIN 6.9 g/dL (6.4-8.2)
[2018-10-09 10:53] LABS: ABSOLUTE NEUTROPHILS 2.9 thou/uL (1.4-8.2); PLATELET ESTIMATE NORMAL
[2018-10-09 13:50] VITALS: BP 162/105
--- NOTE | 2018-10-09 15:16 | EKG ---
[place] [address] [facility] [place] [address] ELECTROCARDIOGRAM REPORT Name: HAM JONES Room #: 457-P ADM IN M.R.#: [id number] ������������������ Admission: 10/09/18 ������������������ Attend Phys: Felix Valero MD Discharge: ������������������ Date of : 68 Report #: [id number] ����������������������������������������������������������������� [id number] THIS REPORT FOR: //name// [facility] ED Test Date: 2018-10-09 Test Time: 10:01:44 Pat Name: HAM JONES Department: Room: [facility] Gender: M Frit Burner: Destiney ORNELAS : 1970 Requested By: Janet Cummings Order Number: [id number] MD: Gabino Dickey Measurements Intervals [place] Rate: 88 P: 46 VA: 184 QRS: -36 QRSD: 95 T: 135 QT: 369 QTc: 447 Interpretive Statements Sinus rhythm Probable left atrial enlargement LVH with secondary repolarization abnormality Compared to ECG 10/01/2018 10:07:30 Left ventricular hypertrophy now present Early repolarization now present Electronically Signed On 10-09-2018 15:15:56 CDT by Gabino Dickey [email or web address] ��������������������������������������������� <ELECTRONICALLY SIGNED> ���������������������������������������� By: Gabino Dickey MD ��������������������������������������������� 10/09/18 1515 1001 1001 Gabino Dickey MD /EPI
[2018-10-09 15:30] VITALS: BP 147/96
[2018-10-09 17:00] VITALS: BP 153/103; BP 159/109; BP 183/110
[2018-10-09 17:37] LABS: ALBUMIN 2.4 g/dL (3.4-5.0); TOTAL PROTEIN 6.5 g/dL (6.4-8.2)
--- NOTE | 2018-10-09 17:47 | NUR ---
ASSUMED CARE AT 1515, PT A&OX4, VSS, DENIES PAIN. NO SIGNS OF DISTRESS, PT DENIES CHEST PAIN AND DIZZINESS AT THIS TIME. ORTHOSTATIC BP CHARTED. BED IN LOWEST POSITION, CALL LIGHT WITHIN REACH, WILL CONTINUE TO MONITOR.
[2018-10-09 18:03] LABS: TSH 2.941 uIU/mL (0.358-3.740)
[2018-10-09 19:10] VITALS: BP 168/88
--- NOTE | 2018-10-10 02:38 | NUR ---
Assumed care 1845. Pt resting in bed. VSS. Pt denies chest pain and dizziness. Has been NPO since midnight. Refused to take Minoxidil because it has been causing the dizziness. No identified needs. Call light within reach. Will continue to monitor.
[2018-10-10 04:33] VITALS: BP 153/92
[2018-10-10 06:03] LABS: HEMATOCRIT 35.9 % (42.0-52.0); HEMOGLOBIN 11.8 gm/dL (14.0-18.0); MCH 27.8 pg (26.0-34.0); MCHC 32.9 g/dL (28.0-37.0); MCV 84.5 fL (80.0-100.0); RBC 4.25 mil/uL (4.50-6.00); RDW 14.4 % (10.5-14.5); WBC 4.8 thou/uL (4.0-11.0)
[2018-10-10 06:06] LABS: CHOLESTEROL 131 mg/dL (<200); HDL CHOLESTEROL 26 mg/dL (>40); LDL CHOLESTEROL 60 mg/dL (<100); TRIGLYCERIDE 228 mg/dL (<150); VLDL 46 mg/dL (<40)
[2018-10-10 06:08] LABS: SERUM ASSESSMENT Clear
[2018-10-10 06:09] LABS: ALBUMIN 2.2 g/dL (3.4-5.0); CALCIUM 8.2 mg/dL (8.5-10.1); CREATININE 3.6 mg/dL (0.7-1.3); PHOSPHORUS 4.8 mg/dL (2.5-4.9); POTASSIUM 4.4 mmol/L (3.5-5.1)
[2018-10-10 08:12] VITALS: BP 187/114
[2018-10-10 10:53] VITALS: BP 171/109
--- NOTE | 2018-10-10 15:10 | NUR ---
PT ADMITTED RELATED TO CHEST PAIN AND DIZZINESS. CM REVIEWED CHART AND SPOKE WITH CARE TEAM. CM MET WITH PT AT BEDSIDE THIS DAY. PT IS A&O X4. CM ROLE INTRODUCED. PT INDICATED HE LIVES IN A HOUSE WITH HIS SPOUSE WITH 6 STEPS TO ENTER AND 5 STEPS INSIDE. 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 PT INDICATED NO DME OR HH HX. PT INDICATED HE PLANS TO RETURN HOME ONCE MEDICALLY STABLE. CM TO FOLLOW INDICATED WITH DC PLANNING.
[2018-10-10 16:10] VITALS: BP 153/101
--- NOTE | 2018-10-10 18:18 | NUR ---
PT A&OX4, VSS, DENIES PAIN. PT HAD NUMEROUS PROCEDURES DONE TODAY. CARB HEALTHY DIET RESTARTED. CHEST PAIN AND N/V OCCURED 0700 AND HAS SUBSIDED AT THIS TIME. PT USES CALL LIGHT APPROPRIATELY, BED IN LOW POSITION. NO SIGNS OF DISTRESS. APROX. 0900 PT STATED CHEST PAIN SUBSIDED. WILL CONTINUE TO MONITOR.
[2018-10-10 21:32] VITALS: BP 111/69
[2018-10-11 04:11] VITALS: BP 172/107
--- NOTE | 2018-10-11 05:03 | NUR ---
Assumed care at 1845. Pt resting in bed. AOX4. BP high on last assessment. Pt hasnt had a episode on N/V. Pt waiting to discuss results with MD about results of CT of abdomen and Upper GI Endoscopy. Call light within reach. Bed in lowest position. Will continue to monitor.
[2018-10-11 05:31] LABS: HEMATOCRIT 36.7 % (42.0-52.0); HEMOGLOBIN 12.4 gm/dL (14.0-18.0); MCH 28.5 pg (26.0-34.0); MCHC 33.7 g/dL (28.0-37.0); MCV 84.4 fL (80.0-100.0); RBC 4.35 mil/uL (4.50-6.00); RDW 14.4 % (10.5-14.5); WBC 4.6 thou/uL (4.0-11.0)
[2018-10-11 05:46] LABS: CALCIUM 8.8 mg/dL (8.5-10.1); CREATININE 3.2 mg/dL (0.7-1.3); MAGNESIUM 1.9 mg/dL (1.8-2.4); POTASSIUM 4.4 mmol/L (3.5-5.1)
[2018-10-11 08:00] VITALS: BP 185/116
--- NOTE | 2018-10-11 08:41 | EKG ---
[place] [address] [facility] [place] [address] ELECTROCARDIOGRAM REPORT Name: HAM JONES Room #: 457-P ADM IN M.R.#: [id number] ������������������ Admission: 10/09/18 ������������������ Attend Phys: Felix Valero MD Discharge: ������������������ Date of : 68 Report #: [id number] ����������������������������������������������������������������� [id number] THIS REPORT FOR: //name// [facility] Test Date: 2018-10-10 Test Time: 07:33:22 Pat Name: HAM JONES Department: Room: 457 P Gender: M Ski Topper: DAVID : 1970 Requested By: Bonita Ross Order Number: [id number] MD: Gabino Dickey Measurements Intervals [place] Rate: 82 P: 61 [place]: 192 QRS: -33 QRSD: 93 T: 128 QT: 382 QTc: 446 Interpretive Statements Sinus rhythm Abnormal R-wave progression, late transition Probable left ventricular hypertrophy Nonspecific T abnormalities, lateral leads Compared to ECG 10/09/2018 10:01:44 T-wave abnormality now present Early repolarization no longer present Electronically Signed On 10-11-2018 8:41:01 CDT by Gabino Dickey [email or web address] ��������������������������������������������� <ELECTRONICALLY SIGNED> ���������������������������������������� By: Gabino Dickey MD ��������������������������������������������� 10/11/18 0841 0733 0733 Gabino Dickey MD /EPI
--- NOTE | 2018-10-11 08:42 | EKG ---
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 ACOSTA : 1970 Requested By: Felix Valero Order Number: [id number] MD: Gabino Dickey Measurements Intervals [place] Rate: 76 P: 51 VT: 190 QRS: -35 QRSD: 92 T: 122 QT: 390 QTc: 439 Interpretive Statements Sinus rhythm Probable left ventricular hypertrophy Compared to ECG 10/09/2018 10:01:44 Early repolarization no longer present Electronically Signed On 10-11-2018 8:42:01 CDT by Gabino Dickey [email or web address] ��������������������������������������������� <ELECTRONICALLY SIGNED> ���������������������������������������� By: Gabino Dickey MD ��������������������������������������������� 10/11/18 0842 1009 Gabino Dickey MD /[facility]
[2018-10-11 12:00] VITALS: BP 168/106
--- NOTE | 2018-10-11 14:56 | NUR ---
Assumed pt care at 7am.Assessment completed.vss but elevated bp noted.All scheduled po meds given but bp still elevated. Dr Valero notified and order noted.Pt's has lots of c/o.Such as room not done or bed made.House keeper notified and room was recleaned.Completed bed change done and pt took shower. Pt completed screening sheet for mri schedlued for saturday.Will continue to monitor.
[2018-10-11 15:00] VITALS: BP 147/82
[2018-10-11 19:55] VITALS: BP 166/108
[2018-10-11 22:26] VITALS: BP 159/98
[2018-10-12] VITALS (8 sets, daily range): BP systolic 145–170; BP diastolic 96–106
--- NOTE | 2018-10-12 04:12 | NUR ---
ASSUMED CARE AT 1900. PT ALERT AND ORIENTED. VITALS STABLE W/t ELEVATED BP. BP MEDS GIVEN SCHEDULED AND PRN. DENIES CHEST PAIN N/V. PT CONCERNED ABOUT HIS DISCHARGE. BG 185, COVERED WITH SLIDING SCALE. NO FURTHER C/O AT THIS TIME. WILL CONTINUE TO FOLLOW POC.
[2018-10-12 05:22] LABS: HEMATOCRIT 36.8 % (42.0-52.0); HEMOGLOBIN 12.2 gm/dL (14.0-18.0); MCHC 33.2 g/dL (28.0-37.0); MCV 84.3 fL (80.0-100.0); RBC 4.37 mil/uL (4.50-6.00); RDW 14.9 % (10.5-14.5); WBC 5.5 thou/uL (4.0-11.0)
[2018-10-12 05:37] LABS: ALBUMIN 2.4 g/dL (3.4-5.0); CALCIUM 8.7 mg/dL (8.5-10.1); CREATININE 3.4 mg/dL (0.7-1.3); MAGNESIUM 1.9 mg/dL (1.8-2.4); PHOSPHORUS 4.4 mg/dL (2.5-4.9); POTASSIUM 4.2 mmol/L (3.5-5.1)
--- NOTE | 2018-10-12 15:33 | NUR ---
PT RESTING IN BED ALERT XS 4 NO PAIN OR RESP DISTRESS AT THIS TIME. PT GIVEN FRESH ICE WATER. PT CONT OF B&B AMBULATORY TO BATHROOM. FAMILY HERE TO VISIT EARLIER. PT WASHED UP BED LINENS CHANGED EARLIER. PT PLEASANT AND COOPERATIVE WITH CARE.
--- NOTE | 2018-10-13 02:34 | NUR ---
ASSUMED CARE AROUND 1900. AXOX4. DENIES CHEST PAIN. CPAP INITIATED. NO S/S ACUTE DISTRESS NOTED OR REPORTED AT THIS TIME. WILL CONT TO MONITOR FOR ANY CHANGES IN CONDITION.
[2018-10-13 05:54] LABS: HEMATOCRIT 39.5 % (42.0-52.0); HEMOGLOBIN 13.1 gm/dL (14.0-18.0); MCH 28.2 pg (26.0-34.0); MCHC 33.2 g/dL (28.0-37.0); MCV 84.8 fL (80.0-100.0); RBC 4.66 mil/uL (4.50-6.00); RDW 14.8 % (10.5-14.5); WBC 5.9 thou/uL (4.0-11.0)
[2018-10-13 06:07] LABS: ALBUMIN 2.6 g/dL (3.4-5.0); CALCIUM 9.2 mg/dL (8.5-10.1); CREATININE 3.4 mg/dL (0.7-1.3); POTASSIUM 4.3 mmol/L (3.5-5.1)
[2018-10-13 08:00] VITALS: BP 151/92
[2018-10-13 15:00] VITALS: BP 189/107
--- NOTE | 2018-10-13 17:06 | PATH ---
[facility] [address] [address] PATHOLOGY RPT PROCEDURE Name: HAM COLUNGA Julianna Room #: 457-P ADM IN M.R.#: [id number] ������������������ Admission: 10/09/18 ������������������ Date of : 68 Discharge: Report #: [id number] Path Case #: [id number] [facility] Accession Number: [id number] . 01 Material submitted: . PART A: stomach - BX OF GASTRIC TO R/O H. PYLORI PART B: stomach - GASTRIC POLYP . 01 Clinical history: . Atypical chest pain . 02 Diagnosis: A. Gastric mucosa, gastric to R/O H. pylori, endoscopic biopsy: - Mild active gastritis with features of reactive gastropathy. - Negative for intestinal metaplasia or atrophy. - Negative for Helicobacter pylori (properly controlled immunohistochemical stain performed). . B. Polyp, gastric polyp, endoscopic biopsy: - Few fragments compatible with fundic gland polyp; negative for dysplasia. - Few fragments showing lamina propria effaced with foamy macrophages; negative for dysplasia. - Negative for active gastritis, intestinal metaplasia or malignancy. (IUV:ludin; 10/13/2018) QMS/10/13/2018 . 02 Electronically signed: . Zari Briggs MD, Pathologist NPI- [id number] . 01 Gross description: . A. Received in formalin labeled "Ham Colunga, BX of gastric to rule out H. pylori," are 4 segments of stoll soft tissue measuring 1.5 x 0.7 x 0.2 cm in aggregate dimensions and ranging from 0.4 to 0.5 cm in maximum dimension. The specimen is submitted entirely in cassette A1. . B. Received in formalin labeled "Ham Col[place], gastric polyp," are 5 segments of stoll soft tissue measuring 0.9 x 0.7 x 0.3 cm in aggregate dimensions and ranging from 0.2 to 0.4 cm in maximum dimension. The specimen is submitted entirely in cassette B1. (TSD; 10/10/2018) TOB/TOB . 02 Pathologist provided ICD-10: K29.50, K31.7, K31.9 . [address] [place] [address] PATHOLOGY RPT PROCEDURE Name: HAM COLUNGA A Room #: 457-P [facility] IN M.R.#: [id number] ������������������ Admission: 10/09/18 ������������������ Date of : 68 Discharge: Report #: [id number] Path Case #: [id number] [facility] . [id number], [id number], [id number] Specimen Comment: A courtesy copy of this report has been sent to Specimen Comment: [phone], , . Specimen Comment: Report sent to ,DR ABAD / DR RAMIREZ Performed at: [address] [facility], [place], [place] [id number] MD Kavon Ward MD Phone: [phone] Performed at: [address] [facility] [id number] MD Zari Briggs MD Phone: [phone]
--- NOTE | 2018-10-13 18:37 | NUR ---
PT A&OX4, VSS, DENIES PAIN. PT HAD MRI DONE TODAY. EPISODE OF HYPERTENSION AND MANAGED WITH PRN HYDROLAZINE. WILL CONTINUE TO MONITOR.
[2018-10-13 19:12] VITALS: BP 150/103
--- NOTE | 2018-10-14 03:19 | NUR ---
ASSUMED CARE AROUND 1900. AXOX4. NO S/S ACUTE DISTRESS NOTED OR REPORTED AT THIS TIME. WILL CONT TO MONITOR FOR ANY CHANGES IN CONDITION.
[2018-10-14 04:12] VITALS: BP 156/109
[2018-10-14 07:52] VITALS: BP 150/113
[2018-10-14 12:06] LABS: ALDOSTERONE 6.7 ng/dL (0.0-30.0)
[2018-10-14 13:40] VITALS: BP 168/99
--- NOTE | 2018-10-14 17:57 | NUR ---
AAOX4 VERY PLEASANT AND COOPERATIVE. DENIES PAIN OR DISCOMFORT. IV LEFT FOREARM. UP IN ROOM WITH STEADY GAIT. GOOD APPETITE. VOIDS WITHOUT DIFFICULTY. ON ROOM AIR. ACCUCHECKS COMPLETED AC AND COVERED WITH SLIDING SCALE.
[2018-10-14 19:34] VITALS: BP 172/106
[2018-10-15 03:39] VITALS: BP 143/88
--- NOTE | 2018-10-15 05:11 | NUR ---
Pt. rested quietly during the night when checked on during frequent rounds. He offers no complaints. Up ad olive in his room. Pt. showered last pm and bed linens changed.
[2018-10-15 05:52] LABS: ALBUMIN 2.4 g/dL (3.4-5.0); CALCIUM 8.9 mg/dL (8.5-10.1); CREATININE 3.6 mg/dL (0.7-1.3); PHOSPHORUS 5.1 mg/dL (2.5-4.9)
[2018-10-15 07:13] VITALS: BP 152/95
[2018-10-15 09:07] LABS: RENIN 0.283 ng/mL/hr (0.167-5.380)
[2018-10-15] MEDS ORDERED: MINOXIDIL2.5 MG PO (10:15)
[2018-10-15] MEDS ORDERED: AMLODIPINE BESY10 MG PO (10:15)
[2018-10-15] MEDS ORDERED: COREG25 MG PO (10:15)
[2018-10-15] MEDS ORDERED: TORSEMIDE20 MG PO (10:15)
[2018-10-15] MEDS ORDERED: ALDACTONE50 MG PO (10:15)
[2018-10-15] MEDS ORDERED: COZAAR100 MG PO (10:15)
[2018-10-15 10:48] VITALS: BP 152/95
--- NOTE | 2018-10-15 14:33 | NUR ---
DICHARGED TO HOME. UAL WITH GOOD TOLERATION OF ACTIVITY. GOOD APPETITE. DENIES PAIN. BLISTERS HEALING ON FACE. SALINE LOCK D/C'D.
--- NOTE | 2018-10-17 08:25 | P ---
[facility] [place] [address] PROCEDURE REPORT Name: HAM JONES Room #: 457-P [facility] IN M.R.#: [id number] Admission: 10/09/18 ������������������ Attend Phys: Felix Valero MD Discharge: 10/15/18 ������������������ Date of : 68 Report #: [id number] THIS REPORT FOR: //name// CC: Felix Peña MD DATE OF SERVICE: 10/10/2018 PROCEDURE PERFORMED: Upper endoscopy with biopsies. HISTORY OF PRESENT ILLNESS: The patient is a 48-year-old male with a history of low chest pain, intermittent midepigastric abdominal pain. Cardiac workup so far has been negative. He does have a history of gastroesophageal reflux disease, currently taking Nexium approximately every other day as it controls his heartburn symptoms quite well. He denies any dysphagia or odynophagia. No previous history of upper endoscopy. He does report a small amount of bright red blood per rectum at times. He has had a colonoscopy, he is unsure when, but it has been several years ago. No family history of colon cancer. Plan is for EGD. DESCRIPTION OF PROCEDURE: The risks and benefits of the procedure were explained to the patient, those risks including but not limited to bleeding, perforation. He understood these risks and gave informed consent. Sedation was given using propofol per Anesthesia. Next, using a standard Olympus upper endoscope, the scope was placed in the patient's mouth and advanced under direct vision through the esophagus, stomach and into the second portion of the duodenum. The larynx was normal in appearance. The esophagus was normal throughout. The GE junction was normal. In the gastric fundus, a 5 mm polyp was noted. This was removed with cold forceps. There was a small amount of bleeding afterwards. Therefore, a single endoclip was placed. No further bleeding was noted, otherwise normal fundus, the body, however, and the antrum showed gastritis and multiple greater than 10 clean white-based ulcers ranging from 1-2 cm were noted throughout the antrum. No evidence of bleeding. Also noted were multiple erosions. Biopsies were obtained to rule out H. pylori. The pylorus was normal and patent. The duodenal bulb, first and second portion were all normal. At this point, the scope was then withdrawn and the procedure terminated. The patient tolerated the procedure well. IMPRESSION: 1. Multiple ulcers and erosions as well as gastritis noted in the gastric body and antrum as described above, possible source of his abdominal pain. 2. Gastric polyp. 3. Otherwise, normal upper endoscopy. [address] [address] PROCEDURE REPORT Name: HAM JONES Room #: 457-P [facility] IN ..#: [id number] Admission: 10/09/18 ������������������ Attend Phys: Felix Valero MD Discharge: 10/15/18 ������������������ Date of : 68 Report #: [id number] RECOMMENDATIONS: 1. Await biopsy results. 2. Continue long-term daily PPI therapy. 3. We will add Carafate at this time. Thank you for allowing me to participate in his care. ��������������������������������������������� <ELECTRONICALLY SIGNED> ���������������������������������������� By: Alexis Dumont MD ��������������������������������������������� 10/17/18 0825 1246 0307 Alexis Dumont MD /nt
== END 2018-10-15 14:31 | disposition home or self-care (01) | DRG 383 ==
LOC: ER 09:37 → 4W 14:14 → EROBS 14:14 → 4W 15:04 → ENTRNSPT 10-15 12:17 → EDTRNSPTSTS 10-15 12:18 → 4W 10-15 14:31
PROVIDERS: Emergency Medicine; Hospitalist; Nurse Practitioner; ADMIT Internal Medicine
PROC: 0DB78ZX Excision of Stomach, Pylorus, Via Natural or Artificial Opening Endoscopic, Diagnostic (ICD-10-PCS; principal; 2018-10-10)
DX: K25.9 Gastric ulcer, unspecified as acute or chronic, without hemorrhage or perforation (principal); K85.90 Acute pancreatitis without necrosis or infection, unspecified; N17.9 Acute kidney failure, unspecified; I43 Cardiomyopathy in diseases classified elsewhere; I13.0 Hypertensive heart and chronic kidney disease with heart failure and stage 1 through stage 4 chronic kidney disease, or unspecified chronic kidney disease; N18.4 Chronic kidney disease, stage 4 (severe); G47.33 Obstructive sleep apnea (adult) (pediatric); E78.5 Hyperlipidemia, unspecified; E11.22 Type 2 diabetes mellitus with diabetic chronic kidney disease; K31.7 Polyp of stomach and duodenum; I50.9 Heart failure, unspecified; Z79.899 Other long term (current) drug therapy; Z91.041 Radiographic dye allergy status; Z91.011 Allergy to milk products; Z87.891 Personal history of nicotine dependence; Z90.49 Acquired absence of other specified parts of digestive tract
CPT/HCPCS: 10045; 62110; 62900; 70005

== ENCOUNTER 2019-08-05 07:23 | Emergency (ER) | payer OTHER ==
[~2019-08-05] VITALS: Ht 200.7 cm; Wt 149.7 kg
[~2019-08-05 07:23] MED LIST changes: +ALDACTONE50 MG PO; +COREG25 MG PO; +COZAAR100 MG PO; +MINOXIDIL2.5 MG PO
[2019-08-05 08:30] VITALS: BP 149/101
== END 2019-08-05 08:49 | disposition home or self-care (01) ==
LOC: ER 07:23
DX: B08.1 Molluscum contagiosum (principal); I10 Essential (primary) hypertension; E11.9 Type 2 diabetes mellitus without complications; E78.5 Hyperlipidemia, unspecified; Z87.891 Personal history of nicotine dependence; Z91.041 Radiographic dye allergy status; Z91.011 Allergy to milk products; Z88.6 Allergy status to analgesic agent

== ENCOUNTER 2019-08-07 08:32 | Emergency (ER) | payer OTHER ==
[~2019-08-07] VITALS: Ht 200.7 cm; Wt 154.2 kg
[2019-08-07] MEDS ORDERED: EMLA TOP (11:19)
[2019-08-07 11:36] VITALS: BP 145/98
== END 2019-08-07 11:36 | disposition home or self-care (01) ==
LOC: ER 08:32
DX: B08.1 Molluscum contagiosum (principal); I10 Essential (primary) hypertension; E11.9 Type 2 diabetes mellitus without complications; E78.5 Hyperlipidemia, unspecified; Z87.891 Personal history of nicotine dependence; Z91.041 Radiographic dye allergy status; Z88.6 Allergy status to analgesic agent; Z91.011 Allergy to milk products